=== PATIENT | female | born 1990 | race Caucasian/White ===

== ENCOUNTER 2019-01-17 18:03 | Emergency (ER) | payer SELFPAY ==
[2019-01-17] MEDS ORDERED: KETOROLAC TROMETHAMINE 60 MG/2 ML SDV IM ONE (18:45)
--- NOTE | 2019-01-17 18:45 | ER Document Report ---
ED Medical Screen (RME) - General Chief Complaint: Flank Pain Stated Complaint: RIGHT SIDE BACK PAIN Time Seen by Provider: 01/17/19 18:41 Mode of Arrival: Ambulatory Information source: Patient Notes: 28-year-old female presented to ED for complaint of right flank pain radiating around to the right abdomen. She states that the pain started yesterday she thought she was just having a spasm but now it is gone around to the abdomen. Patient denies any history of a kidney stone. She only history she has an appendectomy. Patient is alert oriented respirations regular and unlabored speaking in full sentences walks with a even steady gait. Patient does have tenderness to the right kidney area. I have greeted and performed a rapid initial assessment of this patient. A comprehensive ED assessment and evaluation of the patient, analysis of test results and completion of medical decision making process will be conducted by an additional ED providers. TRAVEL OUTSIDE OF THE [place] IN LAST 30 DAYS: No - Related Data Allergies/Adverse Reactions: No Known Allergies Allergy (Unverified 01/17/19 18:07) Past Medical History - Social History Frequency of alcohol use: None Drug Abuse: None Renal/ Medical History: Denies: Hx Peritoneal Dialysis Past Surgical History: Reports: Hx Appendectomy, Hx Section - x2 Physical Exam - Vital signs Vitals: Temp Pulse Resp BP Pulse Ox 97.7 F 78 16 114/70 98 01/17/19 18:09 01/17/19 18:09 01/17/19 18:09 01/17/19 18:09 01/17/19 18:09 Course - Vital Signs Vital signs: Temp Pulse Resp BP Pulse Ox 97.7 F 78 16 114/70 98 01/17/19 18:09 01/17/19 18:09 01/17/19 18:09 01/17/19 18:09 01/17/19 18:09
[2019-01-17 19:11] LABS: ABSOLUTE EOSINOPHILS # (AUTO) 0.1 10^3/uL (0.0-0.6); ABSOLUTE LYMPHOCYTES (AUTO) 1.8 10^3/uL (0.5-4.7); ABSOLUTE MONOCYTES (AUTO) 0.4 10^3/uL (0.1-1.4); ABSOLUTE NEUT (AUTO) 10.5 10^3/uL (1.7-8.2); BASOPHILS % (AUTO) 0.2 % (0-2); EOSINOPHILS % (AUTO) 0.6 % (0-6); HEMATOCRIT 46.5 % (36.0-47.0); HEMOGLOBIN 15.4 g/dL (12.0-15.5); MEAN CORPUSCULAR HEMOGLOBIN 30.4 pg (27.0-33.4); MEAN CORPUSCULAR HGB CONC 33.1 g/dL (32.0-36.0); MEAN CORPUSCULAR VOLUME 92 fl (80-97); MONOCYTES % (AUTO) 3.2 % (3-13); PLATELET COUNT 172 10^3/uL (150-450); RED BLOOD COUNT 5.05 10^6/uL (3.72-5.28); RED CELL DISTRIBUTION WIDTH 13.9 % (11.5-14.0); TOTAL CELLS COUNTED % (AUTO) 100 %; WHITE BLOOD COUNT 12.8 10^3/uL (4.0-10.5)
[2019-01-17 19:17] LABS: AMORPHOUS SEDIMENT,URINE TRACE /HPF; APPEARANCE,URINE SLIGHTLY-CLOUDY; BILIRUBIN,URINE NEGATIVE (NEGATIVE); COLOR,URINE YELLOW; GLUCOSE, URINE NEGATIVE (NEGATIVE); KETONES,URINE NEGATIVE (NEGATIVE); LEUKOCYTE ESTERASE,URINE NEGATIVE (NEGATIVE); NITRITE,URINE NEGATIVE (NEGATIVE); PROTEIN,URINE 30 mg/dL (NEGATIVE); URINE SPECIFIC GRAVITY 1.025
[2019-01-17 19:31] LABS: ALANINE AMINOTRANSFERASE 171 U/L (9-52); ALBUMIN 4.4 g/dL (3.5-5.0); ALKALINE PHOSPHATASE 68 U/L (38-126); ANION GAP 12 (5-19); ASPARTATE AMINO TRANSFERASE 248 U/L (14-36); BILIRUBIN,DIRECT 0.5 mg/dL (0.0-0.4); BILIRUBIN,TOTAL 0.7 mg/dL (0.2-1.3); BLOOD UREA NITROGEN 13 mg/dL (7-20); CALCIUM 9.2 mg/dL (8.4-10.2); CARBON DIOXIDE 29 mmol/L (22-30); CHLORIDE 105 mmol/L (98-107); GLUCOSE 117 mg/dL (75-110); POTASSIUM 3.9 mmol/L (3.6-5.0); SODIUM 145.5 mmol/L (137-145); TOTAL PROTEIN 7.4 g/dL (6.3-8.2)
--- NOTE | 2019-01-17 19:50 | ER Document Report ---
ED General - General Chief Complaint: Flank Pain Stated Complaint: RIGHT SIDE BACK PAIN Time Seen by Provider: 01/17/19 18:41 Mode of Arrival: Ambulatory Information source: Patient TRAVEL OUTSIDE OF THE [place] IN LAST 30 DAYS: No - HPI Patient complains to provider of: Right flank pain and abdominal pain Onset: Just prior to arrival Onset/Duration: Sudden Quality of pain: Sharp Severity: Severe Pain Level: 4 Associated symptoms: denies: Chills, Diarrhea, Fever, Nausea, Vomiting Exacerbated by: Denies Relieved by: Denies Similar symptoms previously: No Recently seen / treated by doctor: No Notes: 28-year-old female coming in today with sharp stabbing right flank p ain that came around her abdomen. Cause some nausea. No vomiting. No fevers or chills. No dysuria. No hematuria. No vaginal discharge. - Related Data Allergies/Adverse Reactions: No Known Allergies Allergy (Unverified 01/17/19 18:07) Past Medical History - General Information source: Patient - Social History Smoking Status: Current Every Day Smoker Frequency of alcohol use: None Drug Abuse: None Family History: Reviewed & Not Pertinent Patient has suicidal ideation: No Patient has homicidal ideation: No Renal/ Medical History: Denies: Hx Peritoneal Dialysis Past Surgical History: Reports: Hx Appendectomy, Hx Section - x2 Review of Systems - Review of Systems Notes: Constitutional: No fevers. No chills. EENT: No eye redness. No eye pain. No ear pain. No sore throat. Cardiovascular: No chest pain. No palpitations. Respiratory: No cough. No shortness of breath. No respiratory distress. Gastrointestinal: Positive for right flank pain, positive for abdominal pain, positive for nausea. Negative for vomiting and diarrhea Genitourinary: Atraumatic. No lesions. No pain. No discharge. Musculoskeletal: Atraumatic. No swelling. No deformities. Skin: No rash or lesions. Lymphatic: No swollen lymph nodes. Neurologic: No headache. No syncope. Psychiatric: No suicidal or homicidal ideation. Physical Exam - Vital signs Vitals: Temp Pulse Resp BP Pulse Ox 97.7 F 78 16 114/70 98 01/17/19 18:09 01/17/19 18:09 01/17/19 18:09 01/17/19 18:09 01/17/19 18:09 - Notes Notes: General: Well-developed, well-nourished. In no acute distress. Non-toxic appearing. Cardiac: Well-perfused. Regular rate and rhythm. No murmurs, rubs, or gallops. Pulmonary: No respiratory distress. No cyanosis. Bilateral lung fiels are clear to auscultation. Abdominal: Non-distended. Non-rigid. Bowels sounds are present in all four quadrants. No guarding or rebound. HEENT: Head is atraumatic. Conjunctivae not reddened. No tearing. PERRL. EOMI. Orbits atraumatic. No periorbital swelling or erythema. Oropharynx is without erythema, swelling, or exudates. Neck: Supple. No adenopathy. No meningismus. Dermatologic: Warm with good turgor. No rash. Atraumatic. Chest: Atraumatic. No chest wall tenderness to palpation. Musculoskeletal: Moves all extremities well. No range of motion deficits. no muscular or joint tenderness. No paraspinal muscle tenderness. no midline spinal tenderness or step-off. Genitourinary: Examination deferred Neurologic: No gross neurologic deficits. Psychiatric: Normal mood. Course - Re-evaluation Re-evalutation: 01/17/19 21:11 Labs for the most part unremarkable. CT shows some mesenteric adenopathy. Will discharge home - Vital Signs Vital signs: Temp Pulse Resp BP Pulse Ox 97.7 F 78 16 114/70 98 01/17/19 18:09 01/17/19 18:09 01/17/19 18:09 01/17/19 18:09 01/17/19 18:09 - Laboratory Result Diagrams: 01/17/19 18:57 01/17/19 18:57 Laboratory results interpreted by me: 01/17/19 01/17/19 01/17/19 18:39 18:57 18:57 WBC 12.8 H Seg Neutrophils % 82.0 H Absolute Neutrophils 10.5 H Sodium 145.5 H Glucose 117 H Direct Bilirubin 0.5 H AST 248 H ALT 171 H Urine Protein 30 H Urine Urobilinogen 4.0 H Discharge - Discharge Clinical Impression: Mesenteric lymphadenopathy Abdominal pain Qualifiers: Abdominal location: unspecified location Qualified Code(s): R10.9 - Unspecified abdominal pain Condition: Good Disposition: HOME, SELF-CARE Instructions: Abdominal Pain ([facility]), Oral Narcotic Medication ([facility]), Antinausea Medication ([facility]), Lymphadenopathy ([facility]) Prescriptions: Metoclopramide HCl [Reglan 10 mg Tablet] 1 tab PO Q6H PRN #12 tablet PRN Reason: Referrals: [facility] [Provider Group] - Follow up as needed
--- NOTE | 2019-01-17 20:58 | RADIOLOGY REPORT (SQ) ---
EXAM DESCRIPTION: CT ABDOMEN PELVIS WITHOUT IV CONTRAST COMPLETED DATE/TME: 01/17/2019 18:42 CLINICAL HISTORY: 28 years, Female, right flank pain if hcg neg COMPARISON: EXAM DESCRIPTION: CLINICAL HISTORY: right flank pain if hcg neg COMPARISON: None Available. TECHNIQUE: Contiguous axial images of the abdomen and pelvis were obtained followed by reconstruction images. This exam was performed according to our departmental dose-optimization program, which includes automated exposure control, adjustment of the mA and/or kV according to patient size and/or use of iterative reconstruction technique. FINDINGS: There is a large calcified gallstone in the gallbladder without pericholecystic fluid or gallbladder wall thickening. There are numerous scattered shotty mesenteric lymph nodes. The liver, spleen, pancreas and kidneys are within normal limits. There is no hydronephrosis or renal stones. The gallbladder is otherwise unremarkable by CT criteria. Adrenal glands are within normal limits. Aorta is of normal caliber and tapering. There is no free fluid in the abdomen or pelvis. There is no bowel obstruction. There is no stranding of the mesenteric fat to suggest an inflammatory response. The appendix is within normal limits. There is no pericecal inflammation. IMPRESSION: Probable mesenteric adenitis. Gallstone with no other evidence of acute cholecystitis.
[2019-01-17] MEDS ORDERED: HYDROCODONE/ACETAMINOPHEN 5-325 MG (6 TAB/ER DISP) PO PRN (21:10)
[2019-01-17] MEDS ORDERED: METOCLOPRAMIDE HCL 10 MG TABLET PO ONE (21:10)
[2019-01-17 21:25] VITALS: BP 114/86
== END 2019-01-17 21:25 | disposition home or self-care (01) ==
LOC: ER 18:03
DX: I88.0 Nonspecific mesenteric lymphadenitis (principal); R10.9 Unspecified abdominal pain; R11.0 Nausea; F17.200 Nicotine dependence, unspecified, uncomplicated
CPT/HCPCS: 99284; 36415; 84703; 85025; 80053; 81001; 74176; J1885